=== PATIENT | female | born 2005 | race Caucasian/White ===

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

== ENCOUNTER 2025-05-11 14:00 | Emergency (ER) | payer MEDICAID ==
[2025-05-11 14:24] VITALS: PULSE 102
[2025-05-11 15:16] VITALS: BP 142/79
== END 2025-05-11 16:09 | disposition home or self-care (01) ==
LOC: JP.ED 14:00
DX: S99.912A Unspecified injury of left ankle, initial encounter (principal); Z88.8 Allergy status to other drugs, medicaments and biological substances; Z91.018 Allergy to other foods; W19.XXXA Unspecified fall, initial encounter
CPT/HCPCS: 73610-26-LT; 73610-LT; 99283